=== PATIENT | female | born 1955 | race Caucasian/White ===

== ENCOUNTER → 2019-08-07 13:57 | Outpatient (CLI) | payer MEDICARE, SELFPAY ==
--- NOTE | ~2019-08-07 | DEXA_ITS ---
Bone Density Report Name: Edith Peres Age: 64 Sex: Female Ethnicity: White Date of : 1955 Indication: osteopenia; monitoring treatment; height loss; asthma or emphysema; hysterectomy; postmenopausal Referring Provider: JonhConstanza Study: Bone densitometry was performed. Exam Date: August 07, 2019 Accession number: [id number] Bone Density: Region BMD T-score Z-score Classification AP Spine (L1-L4) 0.978 -0.6 1.2 Normal Femoral Neck (Left) 0.610 -2.1 -0.6 Osteopenia Total Hip (Left) 0.692 -2.0 -0.8 Osteopenia Femoral Neck (Right) 0.728 -1.1 0.5 Osteopenia Total Hip (Right) 0.718 -1.8 -0.6 Osteopenia Total Hip Mean 0.705 -1.9 -0.7 Osteopenia World Health Organization criteria for BMD impression classify patients as: Normal (T-score at or above -1.0), Osteopenia (T-score between -1.0 and -2.5), or Osteoporosis (T-score at or below -2.5). 10-year Fracture Risk: FRAX not reported because: Treated for osteoporosis Previous Exams: Region Exam Age BMD T-score BMD Change BMD Change Date g/cm2 vs Baseline vs Previous AP Spine(L1-L4) 08/07/2019 64 0.978 -0.6 -0.046* -0.046* 07/09/2016 60 1.024 -0.2 Total Hip(Left) 08/07/2019 64 0.692 -2.0 0.003 0.003 07/09/2016 60 0.689 -2.1 Total Hip(Right) 08/07/2019 64 0.718 -1.8 0.001 0.001 07/09/2016 60 0.717 -1.8 *Denotes significance at 95% confidence level, LSC for AP Spine = 0.022 g/cm2, LSC for Total Hip = 0.027 g/cm2 Clinical Information Provided by Patient: Is being treated for osteoporosis Has used the following medications: HRT (i.e. estrogen/hormone therapy) Has the following medical conditions: Asthma or Emphysema, Hysterectomy Patient maximum height was 61.5 Menopause Age: 34 No regular weight bearing exercise Drinks caffeinated beverages Onset of menses at age 13 Number of children 0 Missed period for more than 6 months in a row Impression: The patient has low bone mass, based on the Left Femoral Neck T-score. The BMD for the AP Spine(L1-L4) decreased, changing by -0.046 since the last DXA exam. Discussion: SIGNIFICANT BONE LOSS OBSERVED. Adherence to therapy (including calcium and vitamin D intake) should be assessed. If compliance is not a factor, review management and exclusion of secondary causes of bone loss. It is important to ask patients whether they are taking their medications and to encourage continued and merrill
--- NOTE | ~2019-08-07 | MM_ITS ---
EXAMINATION: MM screening grisel BI w mariaelena HISTORY: Screening mammogram TECHNIQUE: Bilateral rotated lateral CC views. Craniocaudal and mediolateral oblique 3-D tomosynthesi s images were obtained and synthetic 2-D images were generated. CAD analysis was submitted and interp reted. COMPARISON: No prior mammogram is available for comparison at this institution. BREAST PARENCHYMAL COMPOSITION: The breasts are heterogeneously dense, which may obscure small masses . FINDINGS: Occasional benign calcifications. There is no evidence of suspicious mass, calcification, o r architectural distortion to suggest malignancy in either breast. There has been no suspicious inter italo change. IMPRESSION: 1. No mammographic evidence of malignancy. 2. Recommend routine screening mammography in one year. BI-RADS Category 2: Benign finding(s). Reviewed, dictated and finalized at location A. SPECIALIST
== END ==
PROVIDERS: PCP Family Medicine; Visit Provider Nurse Practitioner Family
DX: Z12.31 Encounter for screening mammogram for malignant neoplasm of breast (principal); M85.852 Other specified disorders of bone density and structure, left thigh; M85.851 Other specified disorders of bone density and structure, right thigh
CPT/HCPCS: 77063; 77067; 77080

== ENCOUNTER → 2020-05-30 08:35 | Outpatient (CLI) | payer MEDICARE, SELFPAY ==
--- NOTE | ~2020-05-30 | XR_ITS ---
EXAMINATION: XR lumbar spine 2-3V EXAM DATE: 05/30/2020 09:09 INDICATION: M54.9 - Dorsalgia, unspecified . TECHNIQUE: Lumber spine frontal, lateral, lateral L5-S1 projections for interpretation. There is no prior study for comparison. FINDINGS: There is moderate to severe disc disease L4-5, mild disc disease at the other lumbar level s. There is mild to moderate lumbar facet arthropathy. Sacrum, sacroiliac joints, sacral arcuate line s are intact. Paraspinal soft tissue is unremarkable. The vertebral bodies are aligned in the AP dime nsion. IMPRESSION: L4-5 moderate to severe disc disease. Mild to moderate lumbar facet arthropathy. Reviewed, dictated and finalized at location A. ACE ERECTOR IMPRESSION: L4-5 moderate to severe disc disease. Mild to moderate lumbar face t arthropathy.
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
== END ==
PROVIDERS: PCP Family Medicine; Visit Provider Family Medicine
DX: M51.36 Other intervertebral disc degeneration, lumbar region (principal); M47.892 Other spondylosis, cervical region
CPT/HCPCS: 72040; 72100

== ENCOUNTER → 2020-11-20 10:39 | Outpatient (CLI) | payer MEDICARE, SELFPAY ==
--- NOTE | ~2020-11-20 | MM_ITS ---
EXAMINATION: MM screening grisel BI w mariaelena HISTORY: Screening mammogram TECHNIQUE: Craniocaudal and mediolateral oblique 3-D tomosynthesis images were obtained and synthetic 2-D images were generated. CAD analysis was submitted and interpreted. COMPARISON: 08/07/2019 BREAST PARENCHYMAL COMPOSITION: The breasts are extremely dense, which lowers the sensitivity of mamm ography. FINDINGS: Scattered benign-appearing calcifications are present. There is no evidence of suspicious m ass, calcification, or architectural distortion to suggest malignancy in either breast. There has bee n no suspicious interval change. IMPRESSION: 1. No mammographic evidence of malignancy. 2. Recommend routine screening mammography in one year. BI-RADS Category 2: Benign finding(s). Reviewed, dictated and finalized at location A.
== END ==
PROVIDERS: Visit Provider Obstetrics & Gynecology Gynecology
DX: Z12.31 Encounter for screening mammogram for malignant neoplasm of breast (principal)
CPT/HCPCS: 77063; 77067

== ENCOUNTER → 2021-02-16 09:54 | Outpatient (CLI) | payer MEDICARE, SELFPAY ==
--- NOTE | ~2021-02-16 | US_ITS ---
EXAMINATION: US abdomen complete DATE: 02/16/2021 10:16 INDICATION: Upper abdominal pain and shortness of breath TECHNIQUE: Multiple grayscale and Doppler ultrasound images of the abdomen were obtained. COMPARISON: None available FINDINGS: The head, body, and tail of the pancreas are normal. The liver is normal with normal echoge nicity and echotexture. No surface nodularity. Normal hepatopetal flow in the main portal vein. The g allbladder is normal with no abnormal wall thickening, pericholecystic fluid or stones. The normal co mmon bile duct measures 4 mm. There was no sonographic Guidry sign. The visualized portions of the ao rta and inferior vena cava are normal. The right kidney measures 7.7 x 3.5 x 3.9 cm. The left kidney measures 8.4 x 4.2 x 4.0 cm. The kidney s demonstrate normal parenchymal echogenicity. There is no hydronephrosis. The spleen is normal in ap pearance and measures 7.7 cm. IMPRESSION: 1. No sonographic correlate for the patient's symptoms. Reviewed, dictated and finalized at location B.
== END ==
PROVIDERS: Visit Provider Physician Assistant
DX: R10.10 Upper abdominal pain, unspecified (principal)
CPT/HCPCS: 76700

== ENCOUNTER → 2021-09-03 08:17 | Outpatient (CLI) | payer MEDICARE, SELFPAY ==
--- NOTE | ~2021-09-03 | MMUS_ITS ---
EXAMINATION: MM diagnostic grisel LT w mariaelena, US breast LT complete HISTORY: Left breast lump TECHNIQUE: Full field and spot ML, MLO and CC 3-D tomosynthesis images of the left breast were perfor med and synthetic 2-D images were generated. Magnification views of the left breast in all 3 projecti ons. CAD analysis was submitted and interpreted. High resolution breast ultrasound was performed. COMPARISON: 11/20/2020, 08/07/2019 bilateral screening mammogram examinations BREAST PARENCHYMAL COMPOSITION: The breasts are extremely dense, which lowers the sensitivity of mamm ography. FINDINGS: MAMMOGRAPHIC FINDINGS: There are several up clusters of indeterminate grouped microcalcifications in the posterior upper mid and upper outer left breast. No obvious suspicious mass is noted, particularly area of complaint of left breast lump in the anteri or outer mid to lower left breast. There is dense stroma which may obscure breast masses. Complete le ft breast ultrasound examination was performed. ULTRASOUND: 2:00 2 cm from nipple: Circular approximately 5 mm sonolucency without internal vascularity, with thr ough transmission, likely a cyst. 3:00 subareolar: 4.4 x 6.1 x 6.3 mm sonolucency with through transmission, consistent with simple cys t 4:00 subareolar area: 4.6 x 3.3 x 4.0 mm sonolucency with through transmission and posterior enhancem ent, consistent with cyst 4:00 4 cm from nipple: Oval mildly irregular hypoechoic solid lesion measuring 5.6 x 5.4 x 5.0 mm. Du e to the mild irregularity, ultrasound-guided biopsy is recommended. 6:00 subareolar area: Parallel circumscribed mildly irregular heterogeneous hypoechoic lesion measuri ng 6.7 x 13 mm. Some through transmission is noted. Some calcification is suggested. IMPRESSION: 1. 5.6 x 5.4 x 5 mm irregular hypoechoic solid lesion at 4:00 4 cm from nipple; ultrasound-guided bio psy is recommended. 2. 6.7 x 13 mm irregular heterogeneous hypoechoic solid lesion; ultrasound-guided biopsy is recommend ed 3. Several clusters of grouped microcalcifications; stereotactic biopsy sampling is recommended at a couple of the clusters. BI-RADS category 4, suspicious findings. Dr. Jackson telephoned the report and ultrasound demonstrated biopsy recommendations on September 03 2 at 1028 hours to Nurse Practitioner Vicenta Copeland on 09/03/2021 at approximately 1040 hours Reviewed, dictated and finalized at location A. CLEANER IMPRESSION: 1. 5.6 x 5.4 x 5 mm irregular hypoechoic solid lesion at 4:00 4 cm from nipple; ultrasound-guided biopsy is recommended. 2. 6.7 x 13 mm irregular heterogeneous hypoechoic solid lesion; ultrasound-guid ed biopsy is recommended 3. Several clusters of grouped microcalcifications; stereotactic biopsy samplin g is recommended at a couple of the clusters. BI-RADS category 4, suspicious findings. Dr. Jackson telephoned the report and ultrasound demonstrated biopsy recommendatio shreya on September 03, 2021 at 1028 hours to Nurse Practitioner Vicenta Copeland on at approximately 1040 hours
== END ==
PROVIDERS: PCP Physician Assistant; Visit Provider Obstetrics & Gynecology Gynecology
DX: N63.20 Unspecified lump in the left breast, unspecified quadrant (principal); R92.8 Other abnormal and inconclusive findings on diagnostic imaging of breast
CPT/HCPCS: 76641; 77061; 77065; G0279

== ENCOUNTER → 2021-12-09 12:00 | Outpatient (CLI) | payer MEDICARE, SELFPAY ==
--- NOTE | ~2021-12-09 | DEXA_ITS ---
Bone Density Report Name: LEON CONTRERAS Age: 66 Sex: Female Ethnicity: White Date of : 1955 Indication: osteopenia; monitoring treatment; parental hip fracture; asthma or emphysema; hysterectomy; postmenopausal Referring Provider: Antoinette, Nona Study: Bone densitometry was performed. Exam Date: December 09, 2021 Accession number: [id number] Bone Density: Region BMD T-score Z-score Classification AP Spine (L1-L4) 0.982 -0.6 1.4 Normal Femoral Neck (Left) 0.590 -2.3 -0.6 Osteopenia Total Hip (Left) 0.685 -2.1 -0.7 Osteopenia Femoral Neck (Right) 0.748 -0.9 0.8 Normal Total Hip (Right) 0.705 -1.9 -0.5 Osteopenia Total Hip Mean 0.695 -2.0 -0.6 Osteopenia World Health Organization criteria for BMD impression classify patients as: Normal (T-score at or above -1.0), Osteopenia (T-score between -1.0 and -2.5), or Osteoporosis (T-score at or below -2.5). 10-year Fracture Risk: FRAX not reported because: Treated for osteoporosis Previous Exams: Region Exam Age BMD T-score BMD Change BMD Change Date g/cm2 vs Baseline vs Previous AP Spine(L1-L4) 12/09/2021 66 0.982 -0.6 -0.042* 0.004 08/07/2019 64 0.978 -0.6 -0.046* -0.046* 07/09/2016 60 1.024 -0.2 Total Hip(Left) 12/09/2021 66 0.685 -2.1 -0.004 -0.007 08/07/2019 64 0.692 -2.0 0.003 0.003 07/09/2016 60 0.689 -2.1 Total Hip(Right) 12/09/2021 66 0.705 -1.9 -0.012 -0.013 08/07/2019 64 0.718 -1.8 0.001 0.001 07/09/2016 60 0.717 -1.8 *Denotes significance at 95% confidence level, LSC for AP Spine = 0.022 g/cm2, LSC for Total Hip = 0.027 g/cm2 Clinical Information Provided by Patient: Parent has had a hip fracture Is being treated for osteoporosis Has used the following medications: HRT (i.e. estrogen/hormone therapy), Vitamin D Has the following medical conditions: Asthma or Emphysema, Hysterectomy Patient maximum height was 61.5 Menopause Age: 34 No regular weight bearing exercise Drinks caffeinated beverages Onset of menses at age 13 Number of children 0 Missed period for more than 6 months in a row Impression: The patient has low bone mass, based on the Left Femoral Neck T-score. The patient has risk factors, including: parental hip fracture. No significant bone loss was observed. Discussion: PATIENT UNDER TREATMENT WITH NO SIGNIFICANT BMD LOSS SIN
== END ==
PROVIDERS: PCP Family Medicine; Visit Provider Nurse Practitioner
DX: M85.88 Other specified disorders of bone density and structure, other site (principal); M85.852 Other specified disorders of bone density and structure, left thigh; M85.851 Other specified disorders of bone density and structure, right thigh
CPT/HCPCS: 77080

== ENCOUNTER 2022-11-01 08:00 | Outpatient (NON) | payer MEDICARE, SELFPAY | END 2022-11-01 08:01 | disposition home or self-care (01) | LOC: ANHLAB 11-02 10:09 | PROVIDERS: PCP Internal Medicine; Visit Provider Internal Medicine Gastroenterology | DX: Z86.010 Personal history of colon polyps (principal) | CPT/HCPCS: 88305 ==

== ENCOUNTER 2022-11-01 09:32 | Day surgery (SDC) | payer MEDICARE, SELFPAY ==
[2022-10-05 10:41] VITALS: BMI 17.0
[2022-10-18 12:59] VITALS: BMI 15.4
--- NOTE | 2022-10-18 13:26 | PC.NURSE ---
DURING PREOP PHONE CALL, PT STATES SHE IS CONCERNED ABOUT THE BOWEL PREP BECAUSE SHE SUFFERS FROM [employer] AND IT USUALLY TAKES LONGER FOR THE PREP TO WORK . INSTRUCTED PT TO CALL DR SCHMID'S OFFICE FOR FURTHER INSTRUCTION. PT VERBALIZED UNDERSTANDING.
[2022-11-01 10:05] VITALS: BP 135/81; PULSE 124; RESP 20; TEMP 36.3; O2SAT 100
--- NOTE | 2022-11-01 10:09 | PM.HPGS ---
History of Present Illness History of Present Illness Consent: Risks, benefits, and alternatives have been discussed and questions answered. Patient agrees to proceed with procedure. Chief complaint: History of Colon Polyps Narrative: Edith Peres is a 67 year old female Presents for colonoscopy. Patient has a history of colon polyps identified at the time of colonoscopy 3 years ago. Patient's current weight appetite are normal. She does complain of constipation and occasional hemorrhoidal bleeding after hard bowel movements. She denies any abdominal pain. Her past medical history is significant fiber bipolar illness. Family history is noncontributory. Review of Systems Review of Systems: Review of systems noncontributory. [facility]LY [facility] Past Medical History Medical History Anxiety Anxiety Attention-deficit hyperactivity disorder, unspecified type Bipolar depression Chronic neck and back pain Dyslipidemia Essential (primary) hypertension Hx of migraines Hypertension Idiopathic peripheral neuropathy Irritable bowel syndrome with constipation Migraine, unspecified, intractable, without status migrainosus Osteopenia Post-menopausal Schizophrenia Vitamin D deficiency Surgical History Surgical History History of drainage of abscess perineum History of foot surgery - left History of lumpectomy of both breasts History of tonsillectomy 1960 History of total hysterectomy with bilateral salpingo-oophorectomy (BSO) Social History Social History Smoking packs per day: 2 Smoking cigarettes per day: 40.0 Years smoked: 25 Smoking pack-years: 50.00 Smoking status: Former smoker Tobacco type: cigarettes Second hand tobacco smoke exposure: No Smoking end date: 07/11/98 Alcohol intake: never Substance use: never Substance use type: does not use Living arrangements: with friend(s) Spiritual care concerns: No Meds Home Medications and Allergies Home Medications Medication Instructions Recorded Confirmed Type estradiol 1 mg tablet 1 mg PO HS 07/09/19 11/01/22 History lorazepam 1 mg tablet 1 mg PO QID PRN Anxiety 07/09/19 11/01/22 History sumatriptan succinate 100 mg tablet 100 mg PO PRN PRN Migraine Headache 07/09/19 11/01/22 History amitriptyline 50 mg tablet 50 mg PO .QHS 05/19/20 11/01/22 History sodium,potassium,mag sulfates 17.5 See Rx Instructions PO .COMPLEX 10/05/22 11/01/22 Rx gram-3.13 gram-1.6 gram oral soln #354 mL (Suprep Bowel Prep Kit) acetaminophen 325 mg tablet 325 mg PO ONCE PRN back and neck 10/18/22 11/01/22 History (Tylenol) pain aspirin 325 mg tablet 325 mg PO DAILY 10/18/22 11/01/22 History cholecalciferol (vitamin D3) 25 25 mcg PO HS 10/18/22 11/01/22 History mcg (1,000 unit) tablet (Vitamin D3) fenofibrate nanocrystallized 145 145 mg PO HS 10/18/22 11/01/22 History mg tablet metoprolol succinate 50 mg 50 mg PO HS 10/18/22 11/01/22 History tablet,extended release 24 hr Allergies Allergy/AdvReac Type Severity Reaction Status Date / Time iohexol Allergy Severe Difficulty Verified 11/01/22 10:08 [From CONTRAST - CT, XRAY] Breathing Exam Narrative: Physical exam reveals patient to be alert. Vital signs stable. HEENT exam is unremarkable. Patient is anicteric. She is very thin in appearance. Lungs are clear to auscultation and percussion. Heart is without murmur or extra sounds. Abdomen bowel sounds are present soft nontender with no hepatosplenomegaly. Digital external rectal exam is normal. Assessment and Plan Assessment and plan (1) History of colon polyps: Code(s): Z86.010 - Personal history of colonic polyps Status: Acute Assessment and Plan: Patient has a prior history of colon polyps. Plan for surveillance colonoscopy now
[2022-11-01] MEDS: LACTATED RINGERS 1,000 ML 150 ML IV CONT (10:18)
--- NOTE | 2022-11-01 10:27 | WPDANESEPPF ---
Anes - Initial Pre Proc Eval Procedure: Operation Date: 11/01/22 11:00 Proposed Procedures p Diagnostic Colonoscopy - Saurabh Fuentes MD Date/Time: 11/01/22 10:27 Surgeon: Saurabh Fuentes MD Pre Op Diagnosis: History of Colon Polyps Patient Data Age: 67 Gender: F Height: 1.55 m Weight: 35.8 kg Last Vital Signs Temp 36.3 C L 11/01/22 10:05 Pulse 124 H 11/01/22 10:05 Resp 20 11/01/22 10:05 BP 135/81 11/01/22 10:05 Pulse Ox 100 11/01/22 10:05 O2 Del Method Room Air 11/01/22 10:05 Allergies Allergy/AdvReac Type Severity Reaction Status Date / Time iohexol Allergy Severe Difficulty Verified 11/01/22 10:08 [From CONTRAST - CT, XRAY] Breathing Home Medications Medication Instructions Recorded Confirmed Type estradiol 1 mg tablet 1 mg PO HS 07/09/19 11/01/22 History lorazepam 1 mg tablet 1 mg PO QID PRN Anxiety 07/09/19 11/01/22 History sumatriptan succinate 100 mg tablet 100 mg PO PRN PRN Migraine Headache 07/09/19 11/01/22 History amitriptyline 50 mg tablet 50 mg PO .QHS 05/19/20 11/01/22 History sodium,potassium,mag sulfates 17.5 See Rx Instructions PO .COMPLEX 10/05/22 11/01/22 Rx gram-3.13 gram-1.6 gram oral soln #354 mL (Suprep Bowel Prep Kit) acetaminophen 325 mg tablet 325 mg PO ONCE PRN back and neck 10/18/22 11/01/22 History (Tylenol) pain aspirin 325 mg tablet 325 mg PO DAILY 10/18/22 11/01/22 History cholecalciferol (vitamin D3) 25 25 mcg PO HS 10/18/22 11/01/22 History mcg (1,000 unit) tablet (Vitamin D3) fenofibrate nanocrystallized 145 145 mg PO HS 10/18/22 11/01/22 History mg tablet metoprolol succinate 50 mg 50 mg PO HS 10/18/22 11/01/22 History tablet,extended release 24 hr Patient hx anesthesia problems: none Family hx anesthesia problems: none Results Review: All pre-operative results and documents have been reviewed as part of the pre-operative evaluation. [facility] Past Medical History Medical History Anxiety Anxiety Attention-deficit hyperactivity disorder, unspecified type Bipolar depression Chronic neck and back pain Dyslipidemia Essential (primary) hypertension Hx of migraines Hypertension Idiopathic peripheral neuropathy Irritable bowel syndrome with constipation Migraine, unspecified, intractable, without status migrainosus Osteopenia Post-menopausal Schizophrenia Vitamin D deficiency Surgical History Surgical History History of drainage of abscess perineum History of foot surgery 1990s - left History of lumpectomy of both breasts History of tonsillectomy 1960 History of total hysterectomy with bilateral salpingo-oophorectomy (BSO) Social History Social History Smoking packs per day: 2 Smoking cigarettes per day: 40.0 Years smoked: 25 Smoking pack-years: 50.00 Smoking status: Former smoker Tobacco type: cigarettes Second hand tobacco smoke exposure: No Smoking end date: 07/11/98 Alcohol intake: never Substance use: never Substance use type: does not use Living arrangements: with friend(s) Spiritual care concerns: No Anes - Eval Final PreProcedure Day of Procedure 11/01/22 10:27 Patient weight: thin Heart: regular rate and rhythm Lungs: clear to auscultation Airway: Mallampati scale class II Neurological: alert and oriented Last oral intake: >/= 8 hours ASA classification: III Emergent: no Anesthetic plan: proceed Anesthesia type and monitoring: general GIVS and standard monitoring Results Review: All pre-operative results and documents have been reviewed as part of the pre-operative evaluation. Informed Consent: The patient's anesthetic plan and its attendant risks and benefits were discussed with the patient/family/POA. Questions were solicited and answers provided to the satisfaction of the patient/family/PO
[2022-11-01 10:53] VITALS: BP 95/47; PULSE 100; RESP 16; O2SAT 100
--- NOTE | 2022-11-01 11:00 | WPDANESPN ---
Anes - Prog Note Post-Op Date/Time: 11/01/22 11:00 Cardiovascular status: normal Respiratory status: normal Airway patency: baseline Mental status: baseline Post-Op hydration status: normal Vital Signs: Last Vital Signs Temp 36.3 C L 11/01/22 10:05 Pulse 124 H 11/01/22 10:05 Resp 20 11/01/22 10:05 BP 135/81 11/01/22 10:05 Pulse Ox 100 11/01/22 10:05 O2 Del Method Room Air 11/01/22 10:05 Pain Score (VAS): 0/10 I/O: Intake & Output 10/31/22 11/01/22 11/01/22 23:59 07:59 15:59 Intake Total 400 Balance 400 Patient Feedback: Patient satisfied with anesthetic care.
[2022-11-01 11:03] VITALS: BP 112/85; PULSE 100; RESP 16; O2SAT 99
[2022-11-01 11:13] VITALS: BP 116/54; PULSE 102; RESP 16; O2SAT 99
== END 2022-11-01 10:28 | disposition home or self-care (01) ==
PROVIDERS: PCP Internal Medicine; Visit Provider Internal Medicine Gastroenterology
PROC: 0DJD8ZZ Inspection of Lower Intestinal Tract, Via Natural or Artificial Opening Endoscopic (ICD-10-PCS; CPT 45378; principal; 2022-11-01 11:00)
DX: Z86.010 Personal history of colon polyps (principal)
CPT/HCPCS: 45385

== ENCOUNTER 2023-09-21 02:51 | Day surgery (SDC) | payer MEDICARE, SELFPAY ==
[2023-09-20 12:45] VITALS: BMI 15.5
[2023-09-20 14:51] VITALS: BMI 15.7
[2023-09-21] VITALS (16 sets, daily range): BP systolic 104–126; BP diastolic 48–67; PULSE 68–83; RESP 14–18; TEMP 36.8; O2SAT 95–100; BMI 15.0
[2023-09-21 07:56] LABS: Basophils Percent Auto 0.4 % (0.2-1.2); Hemoglobin 12.6 g/dL (12.0-15.0); Immature Granulocyte Absolute 0.02 K/mm3 (0.00-0.031); Immature Granulocyte Percent A 0.4 % (0-0.5); Lymphocytes Percent Auto 14.1 % (18.3-44.2); Mean Corpuscular Hemoglobin 26.9 pg (26-34); Mean Corpuscular Volume 89.7 fl (80-100); Mean Platelet Volume 9.5 fl (7.4-10.4); Monocytes Percent Auto 0.6 % (2.6-8.5); Neutrophils Absolute Auto 4.2 K/mm3 (1.3-6.7); Neutrophils Percent Auto 84.5 % (45.5-73.1); Platelet Count Result 406 k/mm3 (150-375); Red Blood Count 4.68 M/mm3 (4.2-5.4); Red Cell Distribution Width 13.2 % (11.5-14.5)
[2023-09-21 08:04] LABS: Anion Gap 9 mmol/L (8-16); Blood Urea Nitrogen 22 mg/dL (7-17); Calcium 9.6 mg/dL (8.4-10.2); Carbon Dioxide 25 mmol/L (22-30); Chloride 102 mmol/L (98-107); Estimated CRCL calculation 26 ml/min; Estimated Glomerular Filt Rate 55; Glucose 152 mg/dL (65-110); Potassium 4.5 mmol/L (3.4-5.0); Sodium 136 mmol/L (137-145)
[2023-09-21 08:12] LABS: INR 0.9
--- NOTE | 2023-09-21 08:52 | WPDHPUPDATE1 ---
History and Physical Update Update Date/Time: 09/21/23 08:52 History and Physical has been reviewed, including an updated exam of the patient. There are NO changes in the patient's condition. Risks, benefits, and alternatives have been discussed and questions answered. Patient agrees to proceed with procedure.
--- NOTE | 2023-09-21 08:52 | WPDMODSED ---
Moderate Sedation Note-Pt Data Patient Data Diagnosis: exertional angina Present Complaint: none Procedure to be performed/Plan: left heart catheterization with selective left and right coronary angiography with left ventriculography hemodynamics and possible percutaneous intervention and stent implantation Allergies Allergy/AdvReac Type Severity Reaction Status Date / Time iohexol Allergy Severe Hives Verified 09/21/23 07:26 [From CONTRAST - CT, XRAY] Home Medications Medication Instructions Recorded Confirmed Type estradiol 1 mg tablet 1 mg PO HS 07/09/19 09/20/23 History lorazepam 1 mg tablet 1 mg PO QID PRN Anxiety 07/09/19 09/20/23 History sumatriptan succinate 100 mg tablet 100 mg PO PRN PRN Migraine Headache 07/09/19 09/20/23 History amitriptyline 50 mg tablet 50 mg PO HS PRN Insomnia 05/19/20 09/20/23 History aspirin 325 mg tablet 325 mg PO DAILY PRN Pain 10/18/22 09/20/23 History metoprolol succinate 50 mg 50 mg PO HS 10/18/22 09/20/23 History tablet,extended release 24 hr acetaminophen 500 mg tablet 500 mg PO Q6H PRN Pain 09/20/23 09/20/23 History ascorbic acid (vitamin C) 500 mg 500 mg PO HS 09/20/23 09/20/23 History tablet (Vitamin C) rosuvastatin 10 mg tablet 10 mg PO HS 09/20/23 09/20/23 History diphenhydramine HCl 25 mg tablet 50 mg PO ONCE PRN allerty 09/21/23 09/21/23 History (Allergy (diphenhydramine)) prednisone 50 mg tablet 50 mg PO ONCE 09/21/23 09/21/23 History Current Medications: Active Medications Sodium Chloride (Normal Saline Iv) 500 mls @ 100 mls/hr IV CONT .Q5H VENU Sedation/Anesthesia: No previous sedation/anesthesia problems (including family history). [facility] Past Medical History Medical History Anxiety Anxiety Attention-deficit hyperactivity disorder, unspecified type Bipolar depression Chronic neck and back pain Dyslipidemia Essential (primary) hypertension Hx of migraines Hypertension Idiopathic peripheral neuropathy Irritable bowel syndrome with constipation Migraine, unspecified, intractable, without status migrainosus Osteopenia Post-menopausal Schizophrenia Vitamin D deficiency Surgical History Surgical History History of drainage of abscess perineum History of foot surgery 1990s - left History of lumpectomy of both breasts History of tonsillectomy 1960 History of total hysterectomy with bilateral salpingo-oophorectomy (BSO) Social History Social History Smoking packs per day: 1.5 Smoking cigarettes per day: 30.0 Years smoked: 25 Smoking pack-years: 37.50 Smoking status: Former smoker Tobacco type: cigarettes Second hand tobacco smoke exposure: No Smoking end date: 07/11/96 Alcohol intake: never Substance use: never Substance use type: does not use Last use: 1996 Living arrangements: other Spiritual care concerns: No Mod Sed Physical Exam Physical Exam Pre Procedural Exam: Normal: Appearance ( thin female), Eyes, Ears, Nose, Neck ( supple, normal range of motion), Throat ( posterior hypopharynx clear, nonerythematous), Airway ( normal anatomy, no obstruction), Lungs, Heart Size, Heart Rate, Heart Rhythm, Neuro Exam, Abdomen, Liver, Extremities and Skin Hours since solid foods: 12 Hours since liquid intake: 12 Mallampati Classification: class III Internal Medicine - PN: Obj Da Vital Signs Vital Signs: Vital Signs - 24 hr 09/21/23 07:28 Temperature 36.8 C Pulse Rate 83 Respiratory Rate 16 Blood Pressure 126/57 L Pulse Oximetry 100 Oxygen Delivery Room Air Meds/Results Medications: Active Medications Generic Name Dose Route Start Last Admin Trade Name Freq PRN Reason Stop Dose Admin Sodium Chloride 500 mls @ 100 mls/hr 09/21/23 07:00 Normal Saline Iv IV CONT .Q5H VENU Labs 09/21/23 07:32
--- NOTE | 2023-09-21 08:54 | WPDCARDPROC ---
Cardiac Cath Procedure Note Date of procedure:: 09/21/23 Performing physician:: Daniel Mcfadden MD Indication:: CAD, exertional angina Brief clinical history:: Patient is a pleasant 68-year-old female with a history of nonobstructive CAD remotely, hyperlipidemia, hypertension with complaints of worsening exertional chest pain for for noninvasive ischemic evaluation which not reveal reversible ischemia, however, patient had severe stress-induced chest pain. Patient was given the option of CT coronary angiogram versus invasive angiography to where she opted to proceed with invasive angiography for definitive evaluation after detailed discussion with regarding relative risks and benefits. patient has a contrast allergy reported and was pretreated per protocol. Procedure Procedure performed:: left heart catheterization with selective left and right coronary angiography with left ventriculography hemodynamics Sedation/Medication given:: MODERATE SEDATION/ANESTHESIA ADMINISTRATION: Patient reports no prior problems with sedation/anesthesia. Please see pre-sedation noted for physical examination documentation. Sedation start time was 0903 and end time was 0926 for a total intra-service/procedure face-face time of 23 minutes. A total of 2mg intravenous Versed and a total of 50mcg intravenous Fentanyl in multiple divided doses was administered for moderate sedation. Moderate sedation was administered by qualified/certified observer Cynthia Nieto RN under my supervision with intra-procedure [id number] observation and management throughout the entirety of the procedure. There were no other issues or complications and patient tolerated the procedure well. See post-anesthesia documentation. Access site:: right femoral artery Estimated blood loss:: 10 cc Procedure note:: PROCEDURES PERFORMED: 1. Left heart catheterization 2. Selective left and right coronary angiography 3. Left ventriculography and hemodynamics 4. Moderate/conscious sedation administration CATHETERS UTILIZED: Left coronary system- 5 Russian JL4 catheter Right coronary system- 5 Russian JR4 catheter Left ventriculography and hemodynamics- 5 Russian angled pigtail catheter PROCEDURE IN DETAIL: After verbal and written informed consent was obtained the patient, risks, benefits, and alternatives explained in detail the patient agreed to proceed with the plan of care as outlined above. The patient was subsequently brought to the cardiac catheterization lab, placed on the cardiac catheterization table, and prepped and draped in the usual sterile fashion. Utilizing approximately 9cc of 1% subcutaneous Lidocaine, the right groin was then locally anesthetized. Utilizing the modified Seldinger technique, a 5 Russian arterial vascular access sheath was inserted in the right common femoral artery easily and without complications. Through this access, coronary angiography was subsequently obtained in multiple standard re-projections. Following this, a 5 Russian angled pigtail catheter was advanced retrograde across aortic valve into the cavity of the left ventricle. Left ventriculography was deferred in the interest of sparing contrast given history of contrast allergy. Left ventricular pressures obtained and pullback across aortic valve was subsequently recorded. The vascular access sheath and angiographic catheters were flushed before and after catheter exchanges. At the conclusion of the diagnostic portion of the procedure, all angiographic guidewires and catheters were removed and the 5 Russian arterial vascular access sheath was then pulled and satisfactory hemostasis was achieved using manual compression. There no complications noted at the conclusion of the diagnostic portion of the study. Findings:: CORONARY ANGIOGRAPHY: The LEFT MAIN arose from the left coronary cusp and was without angiographically significant disease. The left main then trifurcated into the left anterior
== END 2023-09-21 14:12 | disposition home or self-care (01) ==
PROVIDERS: PCP Nurse Practitioner Family; Visit Provider Internal Medicine Cardiovascular Disease
PROC: 4A023N7 Measurement of Cardiac Sampling and Pressure, Left Heart, Percutaneous Approach (ICD-10-PCS; CPT 93452; principal; 2023-09-21 08:30)
DX: I25.10 Atherosclerotic heart disease of native coronary artery without angina pectoris (principal); R94.31 Abnormal electrocardiogram [ECG] [EKG]; I10 Essential (primary) hypertension; E78.5 Hyperlipidemia, unspecified; F41.9 Anxiety disorder, unspecified; E55.9 Vitamin D deficiency, unspecified; F31.89 Other bipolar disorder; J45.909 Unspecified asthma, uncomplicated; K58.1 Irritable bowel syndrome with constipation; G43.919 Migraine, unspecified, intractable, without status migrainosus; F20.9 Schizophrenia, unspecified; G89.29 Other chronic pain; M54.2 Cervicalgia; M54.9 Dorsalgia, unspecified; Z79.82 Long term (current) use of aspirin; Z79.51 Long term (current) use of inhaled steroids; Z79.52 Long term (current) use of systemic steroids; Z98.890 Other specified postprocedural states; Z90.49 Acquired absence of other specified parts of digestive tract; Z87.891 Personal history of nicotine dependence; Z86.79 Personal history of other diseases of the circulatory system; Z82.49 Family history of ischemic heart disease and other diseases of the circulatory system
CPT/HCPCS: 36415; 80048; 85025; 85610; 93458; C1887; C1894; J0461; J1644; J2250; J3010; J7040